=== PATIENT | male | born 1930 | race Caucasian/White ===

== ENCOUNTER 2016-08-12 09:34 | Inpatient (IN) | payer MEDICARE, MEDICAID ==
[2016-08-12] MEDS ORDERED: DEXTROSE 50%-WATER 50 ML DISP.SYRIN ONE (09:54)
[2016-08-12] MEDS ORDERED: METO2.5T2 PO (10:27)
[2016-08-12] MEDS ORDERED: ATOR40TA PO (10:27)
[2016-08-12] MEDS ORDERED: SACU1TAB PO (10:27)
[2016-08-12] MEDS ORDERED: ZINC220C8 PO (10:27)
[2016-08-12] MEDS ORDERED: ASPI81TA2 PO (10:27)
[2016-08-12] MEDS ORDERED: BUME1TAB16 PO (10:27)
[2016-08-12] MEDS ORDERED: CARV3.122 PO (10:27)
[2016-08-12] MEDS ORDERED: AMIO200T2 PO (10:27)
[2016-08-12] MEDS ORDERED: ASCO500T9 PO (10:27)
[2016-08-12] MEDS ORDERED: PANT40TA4 PO (10:27)
[2016-08-12] MEDS ORDERED: MULT-659 PO (10:27)
[2016-08-12] MEDS ORDERED: ALBU2.5V13 IH (10:29)
[2016-08-12] MEDS ORDERED: MAG30ORA PO (10:29)
[2016-08-12] MEDS ORDERED: CITR30SO PO (10:29)
[2016-08-12] MEDS ORDERED: DEXTROSE 50%-WATER 50 ML DISP.SYRIN IVP ONE (10:30)
[2016-08-12] MEDS ORDERED: IPRA0.2S9 IH (10:33)
[2016-08-12] MEDS ORDERED: NA P133E RC (10:33)
[2016-08-12] MEDS ORDERED: ACET-868 PO (10:33)
[2016-08-12] MEDS ORDERED: BLOO-697 IN (10:33)
[2016-08-12] MEDS ORDERED: INSU100V27 SQ (10:33)
[2016-08-12] MEDS ORDERED: MAGN400O6 PO (10:33)
[2016-08-12] MEDS ORDERED: SENN8.6T6 PO (10:33)
[2016-08-12] MEDS ORDERED: NITR0.4T6 SL (10:33)
[2016-08-12] MEDS ORDERED: INSU100V7 SQ (10:36)
[2016-08-12] MEDS ORDERED: LIDOCAINE 2% JEL UROJET 10 ML MM ONE ×2 (11:17→11:30)
[2016-08-12] MEDS ORDERED: ZOLPIDEM TARTRATE 5 MG TABLET PO PRN (14:00)
[2016-08-12] MEDS ORDERED: MAG HYDROX/AL HYDROX/SIMETH 30 ML UDC PO PRN (14:00)
[2016-08-12] MEDS ORDERED: DEXTROSE 50%-WATER 50 ML DISP.SYRIN IV PRN (14:00)
[2016-08-12] MEDS ORDERED: HYDROCODONE/APAP 5/325MG 1 EACH TABLET PO PRN (14:00)
[2016-08-12] MEDS ORDERED: NA PHOS,M-B/NA PHOS,DI-BA 1 EA ENEMA RC PRN (14:00)
[2016-08-12] MEDS ORDERED: NITROGLYCERIN 0.4 MG/TAB BOTTLE SL PRN (14:00)
[2016-08-12] MEDS ORDERED: MAGNESIUM HYDROXIDE 30 ML UDC PO PRN (14:00)
[2016-08-12] MEDS ORDERED: ALBUTEROL FS 2.5 MG/0.5 ML VIAL.NEB IH PRN (14:00)
[2016-08-12] MEDS ORDERED: SENNOSIDES 8.6 MG TABLET PO PRN (14:00)
[2016-08-12] MEDS ORDERED: ACETAMINOPHEN 325 MG TABLET PO PRN (14:00)
[2016-08-12] MEDS ORDERED: IPRATROPIUM NEB FS 0.5 MG/2.5 ML AMPUL.NEB IH PRN (14:00)
[2016-08-12] MEDS ORDERED: Z GUARD REMEDY 2 OZ OINT TP PRN (14:00)
[2016-08-12] MEDS ORDERED: ONDANSETRON HCL/PF 4 MG/2 ML VIAL IVP PRN (14:00)
[2016-08-12] MEDS ORDERED: ENOXAPARIN SODIUM 30 MG/0.3 ML DISP.SYRIN SQ SCH (14:00)
[2016-08-12] MEDS ORDERED: IV SET PRIMARY PUMP SET 1 EA INFUS.SET MC ONE (14:46)
[2016-08-12] MEDS: IV NS 0.9% 1,000 ML IV PRN (15:05)
[2016-08-12] MEDS: BLOOD SUGAR DIAGNOSTIC 1 EACH STRIP IN SCH ×2 (17:14→21:27)
[2016-08-12] MEDS ORDERED: BLOOD SUGAR DIAGNOSTIC 1 EACH STRIP IN SCH (17:30)
[2016-08-12] MEDS: ATORVASTATIN 40 MG TABLET PO SCH (21:27)
[2016-08-12] MEDS: HEPARIN SODIUM, PORCINE 5000 UNITS/1 ML VIAL SQ SCH (21:33)
[2016-08-12] MEDS: INSULIN REGULAR, HUMAN 100 UNIT/ML 3 ML VIAL SQ PRN (21:47)
[2016-08-13] MEDS ORDERED: ALBUTEROL FS 2.5 MG/0.5 ML VIAL.NEB NEB PRN (01:30)
[2016-08-13] MEDS ORDERED: GUAIFENESIN/D-METHORPHAN HB 5 ML UDC ONE (01:37)
[2016-08-13] MEDS: GUAIFENESIN/D-METHORPHAN HB 5 ML UDC PO PRN ×2 (01:42→11:04)
[2016-08-13] MEDS: IV NS 0.9% 1,000 ML IV PRN (05:18)
[2016-08-13] MEDS: BLOOD SUGAR DIAGNOSTIC 1 EACH STRIP IN SCH ×4 (06:32→21:13)
[2016-08-13] MEDS: INSULIN REGULAR, HUMAN 100 UNIT/ML 3 ML VIAL SQ PRN ×2 (06:35→22:02)
[2016-08-13] MEDS ORDERED: PANTOPRAZOLE 40 MG TABLET.DR PO SCH (07:30)
[2016-08-13] MEDS: ASPIRIN 81 MG TAB.CHEW PO SCH (08:50)
[2016-08-13] MEDS: PANTOPRAZOLE 40 MG TABLET.DR PO SCH (08:50)
[2016-08-13] MEDS: ASCORBIC ACID 500 MG TABLET PO SCH (08:50)
[2016-08-13] MEDS: HEPARIN SODIUM, PORCINE 5000 UNITS/1 ML VIAL SQ SCH ×2 (08:52→21:14)
[2016-08-13] MEDS: ATORVASTATIN 40 MG TABLET PO SCH (21:13)
[2016-08-14] MEDS: INSULIN REGULAR, HUMAN 100 UNIT/ML 3 ML VIAL SQ PRN ×2 (06:02→12:56)
[2016-08-14] MEDS: IV NS 0.9% 1,000 ML IV PRN (06:03)
[2016-08-14] MEDS: BLOOD SUGAR DIAGNOSTIC 1 EACH STRIP IN SCH ×4 (06:04→22:41)
[2016-08-14] MEDS: ASCORBIC ACID 500 MG TABLET PO SCH (08:16)
[2016-08-14] MEDS: ASPIRIN 81 MG TAB.CHEW PO SCH (08:16)
[2016-08-14] MEDS: PANTOPRAZOLE 40 MG TABLET.DR PO SCH (08:16)
[2016-08-14] MEDS: HEPARIN SODIUM, PORCINE 5000 UNITS/1 ML VIAL SQ SCH ×2 (08:30→22:50)
[2016-08-14] MEDS: MUPIROCIN OINT 2% 22 GM TUBE SCH (22:34)
[2016-08-14] MEDS: ATORVASTATIN 40 MG TABLET PO SCH (22:35)
[2016-08-15] MEDS: ACETAMINOPHEN 325 MG TABLET PO PRN (01:39)
[2016-08-15] MEDS: IV NS 0.9% 1,000 ML IV PRN (04:48)
[2016-08-15] MEDS: ASCORBIC ACID 500 MG TABLET PO SCH (08:27)
[2016-08-15] MEDS: PANTOPRAZOLE 40 MG TABLET.DR PO SCH (08:27)
[2016-08-15] MEDS: ASPIRIN 81 MG TAB.CHEW PO SCH (08:27)
[2016-08-15] MEDS: MUPIROCIN OINT 2% 22 GM TUBE SCH ×2 (08:29→22:19)
[2016-08-15] MEDS: HEPARIN SODIUM, PORCINE 5000 UNITS/1 ML VIAL SQ SCH ×2 (08:31→22:13)
[2016-08-15] MEDS: BLOOD SUGAR DIAGNOSTIC 1 EACH STRIP IN SCH ×4 (08:33→22:17)
[2016-08-15] MEDS: BOOST GLUCOSE CONTROL VANILLA 237 ML BOX PO SCH (17:28)
[2016-08-15] MEDS: INSULIN REGULAR, HUMAN 100 UNIT/ML 3 ML VIAL SQ PRN (17:28)
[2016-08-15] MEDS: ATORVASTATIN 40 MG TABLET PO SCH (22:12)
[2016-08-15] MEDS: GUAIFENESIN/D-METHORPHAN HB 5 ML UDC PO PRN (23:51)
[2016-08-16] MEDS: IV NS 0.9% 1,000 ML IV PRN (03:50)
[2016-08-16] MEDS: BLOOD SUGAR DIAGNOSTIC 1 EACH STRIP IN SCH ×4 (06:32→22:29)
[2016-08-16] MEDS: MUPIROCIN OINT 2% 22 GM TUBE SCH ×2 (08:30→21:24)
[2016-08-16] MEDS: PANTOPRAZOLE 40 MG TABLET.DR PO SCH (08:30)
[2016-08-16] MEDS: BOOST GLUCOSE CONTROL VANILLA 237 ML BOX PO SCH ×3 (08:30→17:54)
[2016-08-16] MEDS: ASCORBIC ACID 500 MG TABLET PO SCH (08:30)
[2016-08-16] MEDS: ASPIRIN 81 MG TAB.CHEW PO SCH (08:30)
[2016-08-16] MEDS: HEPARIN SODIUM, PORCINE 5000 UNITS/1 ML VIAL SQ SCH ×2 (08:31→21:27)
[2016-08-16] MEDS: INSULIN REGULAR, HUMAN 100 UNIT/ML 3 ML VIAL SQ PRN ×2 (11:22→22:34)
[2016-08-16] MEDS: ACETAMINOPHEN 325 MG TABLET PO PRN (19:49)
[2016-08-16] MEDS: ATORVASTATIN 40 MG TABLET PO SCH (21:31)
[2016-08-16] MEDS: GUAIFENESIN/D-METHORPHAN HB 5 ML UDC PO PRN (22:43)
[2016-08-17] MEDS: BLOOD SUGAR DIAGNOSTIC 1 EACH STRIP IN SCH ×3 (06:49→17:30)
[2016-08-17] MEDS: INSULIN REGULAR, HUMAN 100 UNIT/ML 3 ML VIAL SQ PRN (07:02)
[2016-08-17] MEDS: PANTOPRAZOLE 40 MG TABLET.DR PO SCH (07:30)
[2016-08-17] MEDS: HEPARIN SODIUM, PORCINE 5000 UNITS/1 ML VIAL SQ SCH (09:00)
[2016-08-17] MEDS: ASPIRIN 81 MG TAB.CHEW PO SCH (09:00)
[2016-08-17] MEDS: MUPIROCIN OINT 2% 22 GM TUBE SCH (09:00)
[2016-08-17] MEDS: ASCORBIC ACID 500 MG TABLET PO SCH (09:00)
[2016-08-17] MEDS: BOOST GLUCOSE CONTROL VANILLA 237 ML BOX PO SCH ×3 (09:00→17:00)
[2016-08-17] MEDS ORDERED: IV 1/2NS 1000 ML 1,000 ML IV SCH (11:00)
== END 2016-08-17 21:40 | disposition hospice, inpatient (51) | DRG 682 ==
DX: N17.0 Acute kidney failure with tubular necrosis (principal); I21.4 Non-ST elevation (NSTEMI) myocardial infarction; E43 Unspecified severe protein-calorie malnutrition; I13.0 Hypertensive heart and chronic kidney disease with heart failure and stage 1 through stage 4 chronic kidney disease, or unspecified chronic kidney disease; I50.42 Chronic combined systolic (congestive) and diastolic (congestive) heart failure; N18.4 Chronic kidney disease, stage 4 (severe); I25.5 Ischemic cardiomyopathy; E11.22 Type 2 diabetes mellitus with diabetic chronic kidney disease; E11.649 Type 2 diabetes mellitus with hypoglycemia without coma; I25.10 Atherosclerotic heart disease of native coronary artery without angina pectoris; Z95.1 Presence of aortocoronary bypass graft; K21.9 Gastro-esophageal reflux disease without esophagitis; J44.9 Chronic obstructive pulmonary disease, unspecified; E87.6 Hypokalemia; Z95.810 Presence of automatic (implantable) cardiac defibrillator; Z66 Do not resuscitate; Z79.4 Long term (current) use of insulin; Z51.5 Encounter for palliative care; Z68.27 Body mass index [BMI] 27.0-27.9, adult

== ENCOUNTER 2016-08-17 21:14 | Inpatient (IN) | payer MEDICAID, MEDICARE, OTHER ==
[~2016-08-17] VITALS: Ht 172.7 cm; Wt 81.2 kg
[~2016-08-17 21:14] MED LIST: ACET-868 PO; ALBU2.5V13 IH; AMIO200T2 PO; ASCO500T9 PO; ASPI81TA2 PO; ATOR40TA PO; BLOO-697 IN; BUME1TAB16 PO; CARV3.122 PO; CITR30SO PO; INSU100V27 SQ; INSU100V7 SQ; IPRA0.2S9 IH; MAG30ORA PO; MAGN400O6 PO; METO2.5T2 PO; MULT-659 PO; NA P133E RC; NITR0.4T6 SL; PANT40TA4 PO; SACU1TAB PO; SENN8.6T6 PO; ZINC220C8 PO
[2016-08-17 22:30] VITALS: BP 101/53
[2016-08-18] MEDS ORDERED: MORPHINE SULFATE INJ 2 MG/ML DISP.SYRIN ONE ×2 (00:53→04:01)
[2016-08-18] MEDS: MORPHINE SULFATE INJ 2 MG/ML DISP.SYRIN IV PRN ×3 (00:58→11:19)
[2016-08-18 08:00] VITALS: BP 93/52
[2016-08-18] MEDS ORDERED: diphenhydrAMINE HCL 50 MG/ML VIAL IV PRN (15:30)
[2016-08-18] MEDS ORDERED: ATROPINE SULFATE OPHTH SOLN 15 ML BOTTLE SL PRN (15:30)
[2016-08-18 16:00] VITALS: BP 87/50
[2016-08-18] MEDS: MORPHINE SULFATE PF DRIP 250 MG in IV D5W 240 ML IV PRN ×2 (17:46→18:22)
[2016-08-18 21:59] VITALS: BP 90/56
[2016-08-18 22:00] VITALS: BP 90/56
[2016-08-19 08:00] VITALS: BP 74/40
== END 2016-08-19 15:00 | disposition expired | DRG 460 ==
LOC: HOSPICE 21:14
PROVIDERS: ADMIT Internal Medicine; ATTEND Internal Medicine
DX: N17.9 Acute kidney failure, unspecified (principal); I21.4 Non-ST elevation (NSTEMI) myocardial infarction; E43 Unspecified severe protein-calorie malnutrition; Z51.5 Encounter for palliative care; E11.22 Type 2 diabetes mellitus with diabetic chronic kidney disease; I13.0 Hypertensive heart and chronic kidney disease with heart failure and stage 1 through stage 4 chronic kidney disease, or unspecified chronic kidney disease; I25.5 Ischemic cardiomyopathy; Z95.1 Presence of aortocoronary bypass graft; I25.10 Atherosclerotic heart disease of native coronary artery without angina pectoris; N18.9 Chronic kidney disease, unspecified; Z95.810 Presence of automatic (implantable) cardiac defibrillator; E87.6 Hypokalemia; K21.9 Gastro-esophageal reflux disease without esophagitis; R62.7 Adult failure to thrive; T50.2X5A Adverse effect of carbonic-anhydrase inhibitors, benzothiadiazides and other diuretics, initial encounter; J44.9 Chronic obstructive pulmonary disease, unspecified; I50.22 Chronic systolic (congestive) heart failure
CPT/HCPCS: A4606; J1200; J2270; J2274; J7060